=== PATIENT | male | born 1995 | race Caucasian/White ===

== ENCOUNTER 2016-08-03 21:56 | Emergency (ER) | payer OTHER ==
[2016-08-03 22:16] VITALS: TEMP 98.1
[2016-08-03 22:24] LABS: % IMMATURE GRANULYOCYTES 0.1 % (0.0-1.1); ABSOLUTE IMMATURE GRANULOCYTES 0.01 10^3/uL (0.00-0.10); ADD DIFF? NO; ADD MORPH? NO; ADD SCAN? NO; ATYPICAL LYMPHOCYTE FLAG 0 (0-99); FRAGMENT RBC FLAG 0 (0-99); HEMATOCRIT 45.1 % (40.0-51.0); HEMOGLOBIN 15.3 g/dL (13.7-17.5); LEFT SHIFT FLG 0 (0-99); LIPEMIA HEMOLYSIS FLAG 90 (0-99); MEAN CELL HEMOGLOBIN 29.4 pg (27.9-34.1); MEAN CELL HEMOGLOBIN CONCENTR. 33.9 g/dL (32.4-36.7); MEAN CELL VOLUME 86.6 fL (81.5-99.8); MEAN PLATELET VOLUME 9.2 fL (8.7-11.7); PLATELET CLUMPS FLAG 10 (0-99); PLATELET COUNT 230 10^3/uL (150-400); RED BLOOD CELL COUNT 5.21 10^6/uL (4.40-6.38); RED CELL DISTRIBUTION WIDTH 13.8 % (11.5-15.2)
--- NOTE | 2016-08-03 22:25 | CPEKG ---
Heart Rate: 76 RR Interval: 789 P-R Interval: 180 QRSD Interval: 92 QT Interval: 392 QTC Interval: 441 P [place]: 72 QRS [place]: 88 T Wave [place]: 32 EKG Severity - ABNORMAL ECG - EKG Impression: SINUS RHYTHM EKG Impression: PROBABLE LEFT ATRIAL ABNORMALITY EKG Impression: LEFT VENTRICULAR HYPERTROPHY EKG Impression: ST ELEV, PROBABLE NORMAL EARLY REPOL PATTERN Electronically Signed By: Zak Loaiza 03-Aug-2016 22:46:52
[2016-08-03 22:38] LABS: APTT 30.5 SEC (23.0-38.0); INR 1.09 (0.83-1.16); PROTIME(PATIENT) 13.8 SEC (12.0-15.0)
[2016-08-03 22:40] LABS: ANION GAP 16 mEq/L (8-16); CALCIUM 9.7 mg/dL (8.5-10.4); CARBON DIOXIDE 26 mEq/l (22-31); CHLORIDE 101 mEq/L (97-110); GLOMERULAR FILTRATION RATE > 60; GLUCOSE 108 mg/dL (70-100); POTASSIUM 3.9 mEq/L (3.5-5.2); SODIUM 143 mEq/L (134-144)
[2016-08-03 22:51] LABS: TROPONIN I < 0.012 ng/mL (0-0.034)
--- NOTE | 2016-08-03 23:24 | UCPHY ---
H & P Time Seen by Provider: 08/03/16 22:08 Patient Type: Established HPI/ROS: HPI Chest pains, lightheadedness. 21-year-old male by private vehicle with his mother. 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 He reports that he was out for run on when he developed chest discomfort which she describes as above his costal margin, anterior axillary line, lower chest. He describes it as deep and burning. He reports that he then had this discomfort on and off since this time. He reports that it seems to be exacerbated by movement and pressure directly on the area. He reports that he then started having some episodes of feeling lightheaded earlier this week. He reports specifically on Monday prior to eating breakfast he was in the shower and felt lightheaded but did not lose consciousness. He then went for a hike this morning and again had this chest discomfort as described above. ROS: Constitutional: No fever, no chills. As above. Eyes: No discharge. No changes in vision. ENT: No sore throat. No nasal congestion or rhinorrhea. Respiratory: No cough. No shortness of breath. Cardiac: As above, no palpitations. Gastrointestinal: No abdominal pain, no vomiting, no diarrhea. Genitourinary: No hematuria. No dysuria or increased frequency with urination. Musculoskeletal: No back pain. No neck pain. No myalgias or arthralgias. Skin: No rashes. Neurological: No headache. No focal weakness or altered sensation. Past medical history: No past medical history. No prescription medications. No family history of coronary artery disease. Social history: Nonsmoker. Very healthy an athletically active. No street drug abuse. Physical Exam: General Appearance: Alert, no distress. Tall and thin. This patient is responding to questions appropriately and in full sentences. This patient appears well-hydrated and well-nourished. Eyes: Pupils equal and round no pallor or injection. No lid edema, erythema or injection. Respiratory: There are no retractions, lungs are clear to auscultation with good air movement bilaterally. Cardiovascular: Regular rate and rhythm. No murmur. Pain reproducible at a deep level on focal palpation anterior axillary line just below the pectoralis. No soft tissue changes to this area. Gastrointestinal: Abdomen is soft and nontender, no masses, bowel sounds normal. No focal tenderness at McBurney's point. No Brizuela sign. Neurological: Motor sensory function is grossly intact. Cranial nerves are normal. Gait is normal. Skin: Warm and dry, no rashes. Musculoskeletal: Neck is supple and nontender. Extremities are symmetrical. All joints range without pain or impingement. Psychiatric: No agitation. No depression. Database: EKG: EKG time is 10:22 p.m.; EKG shows a narrow complex normal sinus rhythm with a ventricular rate of 76. The ND, QRS, QT intervals are within normal limits. There are no ST-T wave changes indicative of ischemic or injury pattern. Probable early repolarization pattern. Probable left ventricular hypertrophy. No evidence of right heart strain. No evidence of WPW, Brugada syndrome, hypertrophic cardiomyopathy. Interpreted by me. Imaging: Chest x-ray PA and lateral; the cardiac mediastinal silhouette is unremarkable. No evidence of infiltrate or pneumothorax. No acute cardiopulmonary disease process noted. Interpreted by me. Procedures: Emergency department course: Vital signs reviewed and are unremarkable. Patient was placed on a pantograph engraver. EKG and chest x-ray performed. Patient re-evaluated at 11:20 p.m., resting comfortably at this time. Denies any chest pain. Denies any lightheadedness. Results of his EKG, chest x-ray and blood work were discussed with him and his mother. I discussed admission. He does not want to be admitted at this time. I explained my reasoning for admission and in my professional opinion both him and his mother understand this reasoning. His workup is reassuring. He is marfanoid in appearance but his diagnostic test results and history are not consistent with aortic dissection. Plan will be for close follow-up with Cardiology tomorrow for provocative testing and echocardiogram. He will call the offices of [facility] in the morning for follow-up appointment. I thoroughly discussed the importance of Cardiology follow-up with both him and his mother. He lives near the emergency department. I discussed return to emergency department precautions with him and his mother. All of their questions were answered. He was discharged in good condition. Differential Diagnosis: The differential diagnosis on this patient includes but is not limited to musculoskeletal chest discomfort. Aortic dissection, acute coronary syndrome, pericarditis, myocarditis, pneumothorax, pulmonary embolism unlikely. Arrhythmia unlikely. This represents a partial list of diagnoses considered. These considerations are based on history, physical exam, past history, reassessment and diagnostic testing. Smoking Status: Never smoked Constitutional: Initial Vital Signs Temperature (C) 36.7 C 08/03/16 22:13 Heart Rate 95 08/03/16 22:13 Respiratory Rate 16 08/03/16 22:13 Blood Pressure 144/79 H 08/03/16 22:13 O2 Delivery Mode Room Air Medical Decision Making - Data Points Laboratory Results: Laboratory Results 08/03/16 22:12 08/03/16 22:12 08/03/16 08/03/16 08/03/16 22:12 22:12 22:12 WBC 7.55 10^3/uL 10^3/uL (3.80-9.50) RBC 5.21 10^6/uL 10^6/uL (4.40-6.38) Hgb 15.3 g/dL g/dL (13.7-17.5) Hct 45.1 % % (40.0-51.0) MCV 86.6 fL fL (81.5-99.8) MCH 29.4 pg pg (27.9-34.1) MCHC 33.9 g/dL g/dL (32.4-36.7) RDW 13.8 % % (11.5-15.2) Plt Count 230 10^3/uL 10^3/uL (150-400) MPV 9.2 fL fL (8.7-11.7) Neut % (Auto) 59.1 % % (39.3-74.2) Lymph % (Auto) 27.9 % % (15.0-45.0) [place] % (Auto) 9.8 % % (4.5-13.0) Eos % (Auto) 2.6 % % (0.6-7.6) Baso % (Auto) 0.5 % % (0.3-1.7) Nucleat RBC Rel Count 0.0 % % (0.0-0.2) Absolute Neuts (auto) 4.45 10^3/uL 10^3/uL (1.70-6.50) Absolute Lymphs (auto) 2.11 10^3/uL 10^3/uL (1.00-3.00) Absolute Monos (auto) 0.74 10^3/uL 10^3/uL (0.30-0.80) Absolute Eos (auto) 0.20 10^3/uL 10^3/uL (0.03-0.40) Absolute Basos (auto) 0.04 10^3/uL 10^3/uL (0.02-0.10) Absolute Nucleated RBC 0.00 10^3/uL 10^3/uL (0-0.01) Immature Gran % 0.1 % % (0.0-1.1) Immature Gran # 0.01 10^3/uL 10^3/uL (0.00-0.10) PT 13.8 SEC SEC (12.0-15.0) INR 1.09 (0.83-1.16) APTT 30.5 SEC SEC (23.0-38.0) D-Dimer < 0.27 ug/mLFEU ug/mLFEU (0.00-0.50) Sodium 143 mEq/L mEq/L (134-144) Potassium 3.9 mEq/L mEq/L (3.5-5.2) Chloride 101 mEq/L mEq/L (97-110) Carbon Dioxide 26 mEq/l mEq/l (22-31) Anion Gap 16 mEq/L mEq/L (8-16) BUN 16 mg/dL mg/dL (7-23) Creatinine 1.0 mg/dL mg/dL (0.7-1.3) Estimated GFR > 60 Glucose 108 mg/dL H mg/dL (70-100) Calcium 9.7 mg/dL mg/dL (8.5-10.4) Troponin I < 0.012 ng/mL ng/mL (0-0.034) Departure - Departure Disposition: Home, Routine, Self-Care Clinical Impression: Chest discomfort Condition: Good Instructions: Chest Pain (ED) Additional Instructions: Read and follow provided instructions. No strenuous or exertional activity until you have been cleared by Cardiology. Follow-up with Dr. Shabbir Conteh or 1 of his partners at [facility] in the next 1-2 days for re-evaluation, provocative testing and echocardiogram as discussed. Return to the emergency department for worsening worsening chest pain, palpitations, lightheadedness or other serious concerns. Referrals: Shabbir Conteh MD [Medical Doctor] - As per Instructions - PQRS PQRS Measurement: Not applicable.
[2016-08-04 00:09] VITALS: BP 112/52; PULSE 64; RESP 14; O2SAT 97
== END 2016-08-03 23:50 | disposition home or self-care (01) ==
LOC: CED 21:56
DX: R07.9 Chest pain, unspecified (principal); R42 Dizziness and giddiness
CPT/HCPCS: 71020-PO; 80048-PO; 84484-PO; 85025-PO; 85378-PO; 85610-PO; 85730-PO; G0463-PO